=== PATIENT | female | born 1950 | race Caucasian/White ===

== ENCOUNTER 2017-08-23 03:49 | Inpatient (IN) | payer OTHER, MEDICARE ==
[~2017-08-23] VITALS: Ht 157.5 cm; Wt 88.6 kg
[~2017-08-23 03:49] MED LIST: FERROUS SULFAT325 M3; LEXAPRO5 M1 PO
--- NOTE | 2017-08-23 10:34 | Admission Core Measures ---
Acute Coronary Syndrome (CM) ACS Core Measures Acute Coronary Syndrome Diagnosis No Congestive Heart Failure (NEW) CHF Core Measures Congestive Heart Failure Diagnosis No Cerebrovascular Accident (NEW) CVA Core Measures CVA/TIA Diagnosis No Venous Thromboembolism VTE Core Bunny (View Protocol) VTE Risk Factors Surgery No Mechanical VTE Prophylaxis d/t N/A MechProphylax Ordered No VTE Pharm Prophylaxis d/t NA PharmProphylax ordered Problem List As ranked by this Provider includes Assessment & Plan 1. Unilateral primary osteoarthritis, left knee HOME MEDS Home Med List Escitalopram Oxalate (Lexapro) 5 MG TABLET 1 TAB PO DAILY MOOD (Reported)
--- NOTE | 2017-08-23 10:43 | Surgical Discharge Summary ---
Visit Information Visit Dates Admission Date: 08/23/17 Discharge Date: 09/25/17 History of Present Illness Chief Complaint: LEFT KNEE PAIN Surgical History Pertinent Surgical History: non-contributory Review of Systems: ne fevers no CP/SOB no GALVAN no paresthesias Hospital Course Course Attending Physician: Norm Gresham MD Primary Care Physician: Alec Haley MD Hospital Course: PT PRESENTED TO [facility] ON 08/23/17 FOR AN ELECTIVE LEFT TOTAL KNEE ARTHROPLASTY. PT TOLERATED THE PROCEDURE WELL AND WAS BROUGHT TO THE RECOVERY ROOM IN STABLE CONDITION. POSTOPERATIVELY, SHE WAS TOLERATING PO INTAKE, PAIN WAS CONTROLLED WITH ORAL MEDICATION, VOIDING, AND AMBULATING WITH PHYSICAL THERAPY. SHE WAS CLEARED FOR DISCHARGE. DISCHARGE INSTRUCTIONS WERE REVIEWED WITH THE PATIENT AND PRESCRIPTIONS WERE GIVEN FOR DVT PROPHYLAXIS AND PAIN MANAGEMENT. SHE WAS GIVEN INSTRUCTIONS TO CALL DR GRESHAM'S OFFICE TO MAKE A FOLLOW-UP APPOINTMENT AND TOLD TO CALL IF SHE HAS ANY QUESTIONS OR CONCERNS. THE PATIENT AGREED Allergies: Coded Allergies: No Known Allergies (08/18/17) Significant Procedures: LEFT TOTAL KNEE ARTHROPLASTY Disposition Summary Disposition Principal Diagnosis: LEFT KNEE OSTEOARTHRITIS Additional Diagnosis: SP LEFT TKA Discharge Disposition: home health services Discharge Instructions General Discharge Information Code Status: Full Code Patient's Diet: REGULAR Patient's Activity: WEIGHT BEAR TOLERATED WITH ROLLING WALKER Follow-Up Instructions/Appts: TO SE DR GRESHAM IN 2 WEEKS Medications at Discharge Discharge Medications: Continue taking these medications: Ferrous Sulfate (Ferrous Sulfate) 325 MG (65 MG IRON) TABLET Escitalopram Oxalate (Lexapro) 5 MG TABLET 1 Tablet ORAL DAILY Start taking the following new medications: Celecoxib (Celebrex) 200 MG CAPSULE 2 Capsule ORAL DAILY Qty = 60 No Refills Oxycodone HCl/Acetaminophen (Percocet 5-325 MG Tablet) 5 MG-325 MG TABLET 1-2 Tablet ORAL EVERY 4-6 HOURS as needed for postop pain Qty = 36 No Refills Apixaban (Eliquis) 2.5 MG TABLET 1 Tablet ORAL TWICE DAILY Qty = 84 No Refills Copies To: Alec Haley MD
--- NOTE | 2017-08-23 10:51 | Patient Discharge Instructions ---
Discharge Instructions General Discharge Information You were seen/treated for: LEFT KNEE PAIN You had these procedures: LEFT TOTAL KNEE ARTHROPLASTY Watch for these problems: FEVER OVER 101 DRAINAGE FROM INCISION INCREASED REDNESS, SWELLING AND PAIN AROUND INCISION UNABLE TO BEAR WEIGHT ON LEFT LEG Call Surgeon to remove: FOR WOUND CHECK No bath, but you may shower: Yes Other wound care: DAILY DRY DRESSING CHANGE. KEEP INCISION CLEAN AND DRY Diet Continue normal diet: Yes Activity Activity Self Limited: Yes Activity Limited to: Weight bear as tolerated ( WITH ROLLING WALKER) Acute Coronary Syndrome Inclusion Criteria At DC or during hospital stay patient has or had the following: ACS DIAGNOSIS No Discharge Core Measures Meds if any: Prescribed or Continued at Discharge Meds if any: NOT Prescribed or Continued at Discharge Congestive Heart Failure Inclusion Criteria At DC or during hospital stay patient has or had the following: CHF DIAGNOSIS No Discharge Core Measures Meds if any: Prescribed or Continued at Discharge Meds if any: NOT Prescribed or Continued at Discharge Cerebrovascular accident Inclusion Criteria At DC or during hospital stay patient has or had the following: CVA/TIA Diagnosis No Discharge Core Measures Meds if any: Prescribed or Continued at Discharge Meds if any: NOT Prescribed or Continued at Discharge Venous thromboembolism Inclusion Criteria VTE Diagnosis No VTE Type NONE VTE Confirmed by (Test) NONE Discharge Core Measures - Per Current guidelines, there needs to be overlap - treatment for the first 5 days of Warfarin therapy. - If discharged on Warfarin prior to 5 days of - overlap therapy, the patient will need to be - assessed for post discharge needs including - *Post discharge parental anticoagulation - *Warfarin and/or parental anticoagulation education - *Follow up date to check INR post discharge At least 5 days overlap therapy as Inpatient No Meds if any: Prescribed or Continued at Discharge Note: Overlap Therapy is Warfarin and Anticoagulant Meds if any: NOT Prescribed or Continued at Discharge
[2017-08-23 12:25] VITALS: BP 148/84
--- NOTE | 2017-08-23 14:37 | Operative Report ---
Operative/Inv Procedure Report Surgery Date: 08/23/17 Name of Procedure: Left total knee arthroplasty Pre-Operative Diagnosis: Primary osteoarthritis left knee Post-Operative Diagnosis: Same Estimated Blood Loss: less than 50ml Surgeon/Configuration Management Administrator: Bryant VILLAR,Norm Avitia Anesthesia: general endotracheal tube IV Fluids: See anesthesia record Implants: Striker triathlon cruciate retaining total knee system. Size 4 femur, size 4 tibia, 29 patellar button, 11 mm polyethylene insert Drains: None Specimens: Bone to pathology Tourniquet: 61 minutes Complications: None Condition: Stable Operative Indication: Patient is a pleasant 67-year-old female who has had progressive worsening of left knee pain. She's had Kenalog injections with minimal improvement of her symptoms. She was indicated for a total knee arthroplasty. The risks and benefits of the procedure were discussed with the patient detail in the office and she wished to proceed. Skilled hands was necessary provided by Dr Janny Jones who aided with retraction and limb positioning and component assembly throughout the case. Operative/Procedure Note Note: Once informed consent was obtained the patient is brought to the operating room and placed on table in the supine position. After initiation of general endotracheal anesthesia the patient had a Kruse catheter placed in the thigh tourniquet was placed on the left lower 70. Left lower 70 was then prepped and draped in usual sterile fashion. The procedure midline incision was made for total knee arthroscopy. Sharp dissection is carried down through skin subcutaneous tissue and fat. A medial parapatellar arthrotomy was performed and the patella was everted without competition. Fat pad removed from the patellar tendon. The knee is placed in flexion. Z retractors were placed medially to bursectomy a collateral ligament and a Sade was placed laterally to protect the lateral collateral ligament patella. Intramedullary canal of the femur was entered with a step drill. In the distal femoral cutting guide was placed. Distal femoral cut was made with a 6 valgus cut set and 10 mm of bone resected off of the distal femur. Once this was done the instruments removed and the femur was sized. The femoral sizing guide was placed and pinned in place. The femur sized to be a size 4 femur. A size 4 4-in-1 cutting block was placed in distal femur and the anterior, posterior and chamfer cuts were made without complication bone was passed to specimen for pathology. Once this was done the anterior cruciate ligament was resected and the posterior cruciate ligament was left intact. The medial and lateral menisci were sharply resected with a #10 blade as well. Attention was then turned to the tibial cut. A slight medial release was made using a cautery Bovie and a Laguna elevator medially in order to allow for the varus deformity. Using the extra medullary guide for the tibial cut the guide was placed on the leg and implant resection of 2 mm of bone taken off the medial side was set. The alignment of the mac artist guide was checked with a drop bar and found to be in line with the second ray. Tibial slope was confirmed as well. The external medullary tibial cutting guide was then pinned in place and a tibial cut was made. The bone was passed off as specimen. The tibia was then sized to be a size 4 tibial tray. At this point the patella cut was then made. Using the patellar clamp the patella thickness measured 22 mm and a planned resection of 8-9 mm of bone was resected off the patella. We sized the patella to be a size 29 symmetric button. The drill holes were made for the patella. At this point the knee is placed in a flexion and a trial reduction was done with a 4 tibial tray a size 4 femur a 29 patellar button and a 9 mm polyethylene insert. The knee had full extension and full flexion to 130 the polyethylene insert was size 11. This was placed on the tray and the knee was again reduced with the components. The knee had full extension and still had 130 of flexion without any problems. The knee was now stable to varus and valgus stress at 0 and 30 and 60 of flexion. The patella tracked very nicely. The rotation of the tibial component was marked. The femoral component patellar button removed and the tibial tray was pinned in place for the keel cut. The keel cut was made with the punch without complication. At this point wants was removed. The knee was pulse lavaged with sterile saline. Local anesthetic was infiltrated around the soft tissues and periosteum of the knee. The cement was mixed on the back table and the components were cemented in place with the tibial component followed by the femoral component and finally the patellar button. Excess cement was removed with curettes. An 11 mm polyethylene trial insert was placed in the knee is placed in extension while the cement hardened. Once the cement hardened we again took the knee through a range of motion was found to be stable again at 0, 30 and 60 of flexion. There is no instability or laxity to varus or valgus stress. The polyethylene trial insert was removed and an 11 mm polyethylene insert or a cruciate retaining knee was opened and placed onto the tibial tray and locked in place. The knee was then pulse lavaged with sterile saline. The tourniquet was released and any bleeding was stopped with Bovie electrocautery. The arthrotomy was then closed with #1 Vicryl interrupted sutures. The subcutaneous tissue closed with #1 Vicryl and 2 -0 Vicryl interrupted sutures. The skin was closed a running 3-0 Vicryl subcuticular suture. Steri-Strips are placed and a sterile dressing was placed. The patient was awakened taken recovery room in stable condition.
--- NOTE | 2017-08-23 14:55 | PN- Orthopedic ---
Subjective Subjective: POC Some OOB w PT, feeling very groggy- just stood at bedside. no n/v. donald reg diet. no cp/sob. no pain. Objective Vital Signs and I&Os Vital Signs Date Time Temp Pulse Resp B/P B/P Pulse O2 O2 Flow FiO2 Mean Ox Delivery Rate 08/23 1225 94 Nasal 2.0L Cannula 08/23 1225 96.0 71 16 148/84 94 Nasal 2.0L Cannula Intake & Output 08/23 1600 08/23 0800 08/23 0000 08/22 1600 08/22 0808/22 0000 Intake Total Output Total Balance Patient 195 lb Weight Weight Bed scale Measurement Method Physical Exam: gen- nad card- s1s2 pulm- ctab abd- soft nt ext- lle dressed in martha, onq pump in place, ice machine in place, +dp bl, calves soft nt bl, alps on. Current Medications: Current Medications Sig/David Start time Last Medication Dose Route Stop Time Status Admin Acetaminophen 1,000 MG Q6 08/23 1200 AC IV 08/24 0601 Acetaminophen 0 .STK-MED ONE 08/23 722 DC PO Acetaminophen 650 MG ONCE 08/23 0000 DC PO 08/23 235 Apixaban 2.5 MG BID 08/24 0900 AC PO Celecoxib 400 MG ONCE 08/23 0000 DC PO 08/23 235 Dexamethasone 0 .STK-MED ONE 08/23 721 DC .ROUTE Dexamethasone 10 MG ONCE 08/23 0000 DC IV 08/23 2359 Dextrose/Sodium 1,000 ML .[id number] 08/23 1245 AC Chloride IV Docusate Sodium 100 MG BID 08/23 2100 AC PO Escitalopram Oxalate 5 MG DAILY 08/24 0900 DC PO Gabapentin 0 .STK-MED ONE 08/23 07 DC PO Gabapentin 300 MG ONCE 08/23 0000 DC PO 08/23 2359 Morphine Sulfate 2 MG Q2P PRN 08/23 1245 AC IV Ondansetron HCl 4 MG Q6P PRN 08/23 1245 AC IV Oxycodone HCl 5 MG Q6P PRN 08/23 1100 AC PO Oxycodone HCl 10 MG Q6P PRN 08/23 1100 AC PO Oxycodone HCl 0 .STK-MED ONE 08/23 0722 DC PO Oxycodone HCl 10 MG ONCE 08/23 0000 DC PO 08/23 2359 Polyethylene Glycol 17 GM DAILY NEEDED PRN 08/23 1245 AC PO Ropivacaine 500 ML ONCE ONE 08/23 1030 AC ON-Q Ball 1 BAG INJ 08/25 1229 Scopolamine HBr 0 .STK-MED ONE 08/23 0722 DC TOP Scopolamine HBr 1 PAT ONCE 08/23 0000 DC TOP 08/23 2359 Vancomycin HCl 1,250 MG ONCE ONE 08/23 1900 CAN IV 08/23 1901 Vancomycin HCl 1,250 MG 1900 08/23 1900 AC Sodium Chloride 250 ML IV 08/23 1959 Vancomycin HCl 1,250 MG ONCE 08/23 0000 DC Sodium Chloride 250 ML IV 08/23 2359 Assessment/Plan Assessment/Plan A- POD0 sp L TKR under general, still groggy likely 2/2 resididual anesthesia, otherwise stable. P- wbat, pt, oob titrate off o2 eliquis bid, alps prn pain meds home meds reg diet as tolerated dc planning will dw attending Core Measures Venous Thromboembolism VTE Risk Factors Surgery No Mechanical VTE Prophylaxis d/t N/A MechProphylax Ordered No VTE Pharm Prophylaxis d/t NA PharmProphylax ordered
[2017-08-23 15:10] VITALS: BP 110/60
[2017-08-23 16:58] VITALS: BP 138/72
[2017-08-23 19:00] VITALS: BP 124/78
[2017-08-23 23:00] VITALS: BP 130/68
[2017-08-24 03:31] VITALS: BP 110/64
[2017-08-24 07:01] VITALS: BP 110/66
--- NOTE | 2017-08-24 08:38 | PN- Orthopedic ---
Surgical Brief Attending Note Brief Attending Note: The patient was seen this morning postop day #1 status post left total busted. She is doing well this morning. She has no complaints of any pain. She slept well. She denies chest pain or shortness of breath. On physical exam the patient's left lower extremity is grossly neurovascular intact. She is moving all of her toes. Sensation light touch is intact distally in the foot. Capillary refills less than 2 seconds. The dressing is intact. Status post left total mouth plasty. Plan will be to follow-up labs continue anticoagulation and begin physical therapy this morning.
[2017-08-24 09:28] LABS: ABSOLUTE BASOPHIL COUNT 0.1 /CUMM (0.0-0.2); ABSOLUTE EOSINOPHIL COUNT 0 /CUMM (0.0-0.7); ABSOLUTE GRANULOCYTE CT 17.7 /CUMM (1.4-6.5); ABSOLUTE LYMPH COUNT 1.8 /CUMM (1.2-3.4); BASOPHIL % 0.3 % (0.0-2.0); EOSINOPHIL % 0 % (0-5); GRANULOCYTE % 82.2 % (42.2-75.2); MEAN CORPUSCULAR HGB 30.1 PG (27.0-31.0); MEAN CORPUSCULAR VOLUME 88.6 FL (81.0-99.0); MEAN PLATELET VOLUME 10.2 FL (7.4-10.4); PLATELET COUNT 184 /CUMM (130-400); RBC DISTRIBUTION WIDTH 12.6 % (11.5-14.5); RED BLOOD CELL CT 4.07 /CUMM (4.20-5.40); WHITE BLOOD CELL COUNT 21.5 /CUMM (4.8-10.8)
[2017-08-24 11:27] VITALS: BP 120/70
[2017-08-24 14:03] VITALS: BP 120/80
[2017-08-24 22:24] VITALS: BP 138/86
[2017-08-25 06:47] VITALS: BP 142/78
--- NOTE | 2017-08-25 10:00 | PN- Orthopedic ---
See Addendum Subjective Subjective: pt sitting in chair, minimal pain. denies fevers, cp/sob oob with PT this morning. voiding, no BM denies paresthesias Objective Vital Signs and I&Os Vital Signs Date Time Temp Pulse Resp B/P B/P Pulse O2 O2 Flow FiO2 Mean Ox Delivery Rate 08/25 0647 98.2 74 18 142/78 95 Room Air 08/24 2224 97.9 82 18 138/86 95 Room Air 08/24 1403 98.2 65 20 120/80 98 Room Air 08/24 1127 97.3 60 20 120/70 98 Room Air Intake & Output 08/25 1600 08/25 0800 08/25 0000 08/24 1600 08/24 0800 08/24 0000 Intake Total 781 971 5987 705 1205 Output Total 850 1100 600 Balance 460 900 220 -395 605 Intake, IV 350 525 725 Intake, Oral 460 900 720 180 480 Number 0 0 Bowel Movements Output, Urine 850 1100 600 Physical Exam: gen- NAD ext- left knee dresisng changed, minimal swelling, no signs of infection. distal sensory and motor function intact Current Medications: Current Medications Sig/David Start time Last Medication Dose Route Stop Time Status Admin Apixaban 2.5 MG BID 08/24 09 AC 08/25 PO 0954 Celecoxib 200 MG DAILY 08/24 0900 AC 08/25 PO 0954 Docusate Sodium 100 MG BID 08/23 2100 AC 08/25 PO 0954 Morphine Sulfate 2 MG Q2P PRN 08/23 1245 AC 08/24 IV 1952 Ondansetron HCl 4 MG Q6P PRN 08/23 1245 AC IV Oxycodone HCl 5 MG Q6P PRN 08/23 1100 DC PO Oxycodone HCl 10 MG Q6P PRN 08/23 1100 DC 08/24 PO 1108 Oxycodone/ 1 TAB Q4P PRN 08/24 1630 AC 08/25 Acetaminophen PO 0149 Oxycodone/ 2 TAB Q4P PRN 08/24 1630 AC 08/25 Acetaminophen PO 0608 Polyethylene Glycol 17 GM DAILY NEEDED PRN 08/23 1245 AC 08/24 PO 1444 Ropivacaine 500 ML ONCE ONE 08/23 1030 AC ON-Q Ball 1 BAG INJ 08/25 1229 Results Last 48 Hours of Labs: Laboratory Tests 04/17 0840 Chemistry Sodium (137 - 145 mmol/L) 139 Potassium (3.5 - 5.1 mmol/L) 3.8 Chloride (98 - 107 mmol/L) 102 Carbon Dioxide (22 - 30 mmol/L) 29 Anion Gap (5 - 16) 9 BUN (7 - 17 mg/dL) 14 Creatinine (0.5 - 1.0 mg/dL) 0.6 Estimated GFR (>60 ml/min) > 60 BUN/Creatinine Ratio (7 - 25 %) 23.3 Hematology CBC w Diff NO MAN DIFF REQ WBC (4.8 - 10.8 /CUMM) 21.5 H RBC (4.20 - 5.40 /CUMM) 4.07 L Hgb (12.0 - 16.0 G/DL) 12.2 Hct (37 - 47 %) 36.0 L MCV (81.0 - 99.0 FL) 88.6 MCH (27.0 - 31.0 PG) 30.1 MCHC (33.0 - 37.0 G/DL) 34.0 RDW (11.5 - 14.5 %) 12.6 Plt Count (130 - 400 /CUMM) 184 MPV (7.4 - 10.4 FL) 10.2 Gran % (42.2 - 75.2 %) 82.2 H Lymphocytes % (20.5 - 51.1 %) 8.2 L Monocytes % (1.7 - 9.3 %) 9.3 Eosinophils % (0 - 5 %) 0 Basophils % (0.0 - 2.0 %) 0.3 Absolute Granulocytes (1.4 - 6.5 /CUMM) 17.7 H Absolute Lymphocytes (1.2 - 3.4 /CUMM) 1.8 Absolute Monocytes (0.10 - 0.60 /CUMM) 2.0 H Absolute Eosinophils (0.0 - 0.7 /CUMM) 0 Absolute Basophils (0.0 - 0.2 /CUMM) 0.1 Assessment/Plan Assessment/Plan 67yo F SP Left TKA POD2. stable. WBC 21 yesterday FU- CBC today cont PO pain management with precocet and celebrex dvt ppx- eliquis reg diet PT- WBAT Ice to op site bowel regimen plan for dc to home with health services tomorrow Pt was seen and examined by Dr Hurtado and myself and he agrees with above plan Core Measures Venous Thromboembolism VTE Risk Factors Surgery No Mechanical VTE Prophylaxis d/t N/A MechProphylax Ordered No VTE Pharm Prophylaxis d/t NA PharmProphylax ordered
[2017-08-25] MEDS ORDERED: CELEBREX200 M1 PO (10:06)
[2017-08-25] MEDS ORDERED: ELIQUIS2.5 M1 PO (10:06)
[2017-08-25] MEDS ORDERED: PERCOCET 5-3251 EACH PO (10:06)
[2017-08-25 12:18] LABS: ABSOLUTE BASOPHIL COUNT 0 /CUMM (0.0-0.2); ABSOLUTE EOSINOPHIL COUNT 0.1 /CUMM (0.0-0.7); ABSOLUTE GRANULOCYTE CT 9.1 /CUMM (1.4-6.5); ABSOLUTE LYMPH COUNT 2.4 /CUMM (1.2-3.4); ABSOLUTE MONOCYTE COUNT 1.2 /CUMM (0.10-0.60); BASOPHIL % 0.4 % (0.0-2.0); EOSINOPHIL % 0.8 % (0-5); GRANULOCYTE % 70.5 % (42.2-75.2); HEMATOCRIT 34.8 % (37-47); MEAN CORPUSCULAR HGB 30.3 PG (27.0-31.0); MEAN CORPUSCULAR HGB CONC 33.8 G/DL (33.0-37.0); MEAN CORPUSCULAR VOLUME 89.6 FL (81.0-99.0); MEAN PLATELET VOLUME 9.8 FL (7.4-10.4); PLATELET COUNT 213 /CUMM (130-400); RBC DISTRIBUTION WIDTH 13.2 % (11.5-14.5); RED BLOOD CELL CT 3.88 /CUMM (4.20-5.40); WHITE BLOOD CELL COUNT 12.8 /CUMM (4.8-10.8)
[2017-08-25 15:02] VITALS: BP 122/76
[2017-08-25 22:24] VITALS: BP 122/82
[2017-08-26 06:48] VITALS: BP 138/86
--- NOTE | 2017-08-26 09:23 | PN- Orthopedic ---
Subjective Subjective: pt sitting in chair, pain well controlled on oral pain medication. OOB with PT, cleared for DC to home. Tolerating diet, voiding, no BM yet. Deneis paresthesias, no CP/SOB, fevers Objective Vital Signs and I&Os Vital Signs Date Time Temp Pulse Resp B/P B/P Pulse O2 O2 Flow FiO2 Mean Ox Delivery Rate 08/26 0648 98.5 84 20 138/86 94 Room Air 08/25 2224 98.6 86 18 122/82 94 08/25 1502 97.7 86 20 122/76 96 Intake & Output 08/26 1600 08/26 0800 08/26 0000 08/25 1600 08/25 0800 08/25 0000 Intake Total 200 150 800 460 900 Output Total Balance 200 150 800 460 900 Intake, IV 10 Intake, Oral 200 140 800 460 900 Physical Exam: gen- NAD resp- clear cardiac- RRR abd- soft NT ext- left knee dresing changed, wound clean and dry with no drainage, no signs of infection. no calf tenderness. 2+ DP pulse. distal sensory and motor function intact Current Medications: Current Medications Sig/David Start time Last Medication Dose Route Stop Time Status Admin Apixaban 2.5 MG BID 08/24 09 AC 08/26 PO 0837 Celecoxib 400 MG DAILY 08/26 0900 AC 08/26 PO 0838 Celecoxib 200 MG DAILY 08/24 0900 DC 08/25 PO 0954 Docusate Sodium 100 MG BID 08/23 2100 AC 08/26 PO 0837 Morphine Sulfate 2 MG Q2P PRN 08/23 1245 AC 08/24 IV 1952 Ondansetron HCl 4 MG Q6P PRN 08/23 1245 AC IV Oxycodone/ 1 TAB Q4P PRN 08/24 1630 AC 08/26 Acetaminophen PO 0611 Oxycodone/ 2 TAB Q4P PRN 08/24 1630 AC 08/25 Acetaminophen PO 0608 Polyethylene Glycol 17 GM DAILY NEEDED PRN 08/23 1245 AC 08/25 PO 1402 Ropivacaine 500 ML ONCE ONE 08/23 1030 DC ON-Q Ball 1 BAG INJ 08/25 1229 Results Last 48 Hours of Labs: Laboratory Tests 08/25 1025 Hematology CBC w Diff NO MAN DIFF REQ WBC (4.8 - 10.8 /CUMM) 12.8 H RBC (4.20 - 5.40 /CUMM) 3.88 L Hgb (12.0 - 16.0 G/DL) 11.8 L Hct (37 - 47 %) 34.8 L MCV (81.0 - 99.0 FL) 89.6 MCH (27.0 - 31.0 PG) 30.3 MCHC (33.0 - 37.0 G/DL) 33.8 RDW (11.5 - 14.5 %) 13.2 Plt Count (130 - 400 /CUMM) 213 MPV (7.4 - 10.4 FL) 9.8 Gran % (42.2 - 75.2 %) 70.5 Lymphocytes % (20.5 - 51.1 %) 18.9 L Monocytes % (1.7 - 9.3 %) 9.4 H Eosinophils % (0 - 5 %) 0.8 Basophils % (0.0 - 2.0 %) 0.4 Absolute Granulocytes (1.4 - 6.5 /CUMM) 9.1 H Absolute Lymphocytes (1.2 - 3.4 /CUMM) 2.4 Absolute Monocytes (0.10 - 0.60 /CUMM) 1.2 H Absolute Eosinophils (0.0 - 0.7 /CUMM) 0.1 Absolute Basophils (0.0 - 0.2 /CUMM) 0 Assessment/Plan Assessment/Plan 67yo F SP Left TKA POD3. stable. cont PO pain management with precocet and celebrex dvt ppx- eliquis reg diet PT- WBAT Ice to op site bowel regimen plan for dc to home with health services today FU in [address] vanessa DC instructions reviewed with patient Core Measures Venous Thromboembolism VTE Risk Factors Surgery No Mechanical VTE Prophylaxis d/t N/A MechProphylax Ordered No VTE Pharm Prophylaxis d/t NA PharmProphylax ordered
== END 2017-08-26 11:41 | disposition home health service (06) | DRG 470 ==
LOC: SDA 03:49 → 2NA 03:49 → ENRESERV 11:28 → ENTRNSPT 11:47 → EDTRNSPTSTS 12:12 → 2NA 12:21 → CMPTRNSPT 12:32 → ENPENDDIS 08-26 09:31 → ENTRNSPT 08-26 11:14 → EDTRNSPT 08-26 11:31 → EDTRNSPTSTS 08-26 11:31 → CMPTRNSPT 08-26 11:40 → 2NA 08-26 11:41
PROVIDERS: Physician Assistant Surgical
PROC: 0SRD0J9 Replacement of Left Knee Joint with Synthetic Substitute, Cemented, Open Approach (ICD-10-PCS; principal; 2017-08-23)
PROC: 3E0T3BZ Introduction of Anesthetic Agent into Peripheral Nerves and Plexi, Percutaneous Approach (ICD-10-PCS; principal; 2017-08-23)
DX: M17.12 Unilateral primary osteoarthritis, left knee (principal); E78.00 Pure hypercholesterolemia, unspecified; E78.5 Hyperlipidemia, unspecified; F41.9 Anxiety disorder, unspecified
CPT/HCPCS: 2NAP; 36415; 36592; 82436; 87086; 97110-GO; 97116-GO; 97161-GP; 97530-GO; C1713; J0131; J1100; J1885; J2405; J2795; J3370; J7040; J7042